=== PATIENT | female | born 1955 | race Caucasian/White ===

== ENCOUNTER → 2017-11-03 | Outpatient (CLI) | payer MEDICAID | LOC: M.RAD 09:37 | DX: M47.26 Other spondylosis with radiculopathy, lumbar region (principal); M16.0 Bilateral primary osteoarthritis of hip; M47.898 Other spondylosis, sacral and sacrococcygeal region ==

== ENCOUNTER → 2017-12-02 | Outpatient (CLI) | payer MEDICAID | LOC: M.ULTRA 10:15 → M.MRI 11:30 | DX: M51.16 Intervertebral disc disorders with radiculopathy, lumbar region (principal); K80.20 Calculus of gallbladder without cholecystitis without obstruction ==